=== PATIENT | female | born 1975 | race Caucasian/White ===

== ENCOUNTER 2017-07-13 11:04 | Emergency (ER) | payer OTHER ==
[2017-07-13 11:22] VITALS: BP 143/77; PULSE 72; TEMP 98.1; BMI 28.3
--- NOTE | 2017-07-13 11:51 | PDOC ---
History of Present Illness - General Chief Complaint: Rash Stated Complaint: RASH Time Seen by Provider: 07/13/17 11:36 - History of Present Illness Initial Comments: 42-year-old female healthy and active free of any medical issues comorbidities no ALLERGIES, presents for evaluation of rash on left buttocks times one year she states the rash goes and comes without any precipitating event. There are no other associated symptoms 07/13/17 11:46 Past History - Past Medical History Allergies/Adverse Reactions: Allergies Allergy/AdvReac Type Severity Reaction Status Date / Time No Known Allergies Allergy Verified 07/13/17 11:18 Home Medications: Ambulatory Orders Nystatin Cream [Mycostatin Cream -] 1 applic TP BID #1 tube 07/13/17 COPD: No HTN: Yes (w/ first ) - Reproductive History (#): 2 Para: 1 - Immunization History Immunization Up to Date: No - Suicide/Smoking/Psychosocial Hx Smoking History: Never smoked Have you smoked in the past 12 months: Yes Number of Cigarettes Smoked Daily: 8 If you are a former smoker, when did you quit?: august 2015 Information on smoking cessation initiated: No 'Breaking Loose' booklet given: 10/01/15 Hx Alcohol Use: No Drug/Substance Use Hx: No Substance Use Type: None Review of Systems - Review of Systems Comments:: GENERAL/CONSTITUTIONAL: [No fever or chills. No weakness. No weight change.] HEAD, EYES, EARS, NOSE AND THROAT: [No change in vision. No ear pain or discharge. No sore throat.] CARDIOVASCULAR: [No chest pain or shortness of breath.] RESPIRATORY: [No cough, wheezing, or hemoptysis.] GASTROINTESTINAL: [No nausea, vomiting, diarrhea or constipation. No rectal bleeding.] GENITOURINARY: [No dysuria, frequency, or change in urination.] MUSCULOSKELETAL: [No joint or muscle swelling or pain. No neck or back pain.] SKIN AND BREASTS: [+ rash no easy bruising.] NEUROLOGIC: [No headache, vertigo, loss of consciousness, or loss of sensation.] PSYCHIATRIC: [No depression or anxiety.] ENDOCRINE: [No increased thirst. No abnormal weight change.] HEMATOLOGIC/LYMPHATIC: [No anemia, easy bleeding, or history of blood clots.] ALLERGIC/IMMUNOLOGIC: [No hives or skin allergy. No latex allergy.] 07/13/17 11:47 *Physical Exam - Vital Signs Last Vital Signs Temp Pulse Resp BP Pulse Ox 98.1 F 72 18 143/77 100 07/13/17 11:19 07/13/17 11:19 07/13/17 11:19 07/13/17 11:19 07/13/17 11:19 - Physical Exam Comments: There is an irregularly shaped raised area on the left posterior lateral hip extending into the buttocks. The rash is about 2 cm in length with the smaller similar rash next to it. The surrounding skin is normal color and temperature. The skin overlying the rashes dry without drainage. 07/13/17 11:47 Medical Decision Making - Medical Decision Making Rash appears fungal 07/13/17 11:48 *DC/Admit/Observation/Transfer Diagnosis at time of Disposition: Fungal rash of trunk - Discharge Dispostion Disposition: HOME Condition at time of disposition: Stable Decision to Admit order: No - Referrals Referrals: Promise Rosenthal [Primary Care Provider] - Janett Tabares MD [Non Staff, Medical] - Fannie Dover MD [Staff Physician] - Edward Cox MD [Non Staff, Medical] - Tia Ivory MD [Non Staff, Medical] - Mason Pisano [Non Staff, Medical] - Aramis Nick [Non Staff, Medical] - - Patient Instructions Additional Instructions: Your rash appears fungal. I've given you a list of dermatologists you can choose from to follow-up with. I've also prescribed an antifungal medication you can apply to the area twice daily. Return to the emergency room if symptoms worsen or go unresolved prior to follow-up with dermatology. - Post Discharge Activity
== END 2017-07-13 12:13 | disposition home or self-care (01) ==
LOC: JERFT 11:04
DX: B36.8 Other specified superficial mycoses (principal)
CPT/HCPCS: 99281-25